=== PATIENT | female | born 1980 | race Caucasian/White ===

== ENCOUNTER 2017-05-21 22:26 | Emergency (ER) | payer OTHER ==
[~2017-05-21 22:26] MED LIST: OXYC-360 PO; PRENTAB72 PO; VITA200017 OR
[2017-05-21] MEDS ORDERED: PARO10TA2 PO (22:37)
[2017-05-21] MEDS ORDERED: TRAZ50TA12 PO (22:37)
[2017-05-21 22:38] VITALS: BP 129/77; PULSE 78; RESP 18; TEMP 98.7; O2SAT 99
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
[2017-05-21] MEDS ORDERED: HALOPERIDOL LACTATE 5 MG/ML AMP IM ONE (23:00)
[2017-05-21] MEDS ORDERED: DULO1CAP PO (23:00)
[2017-05-21] MEDS ORDERED: LORazepam 2 MG/ML VIAL IM ONE (23:15)
[2017-05-21 23:37] LABS: AUTOMATED NEUTROPHIL # 10.2 TH/MM3 (1.8-7.7); BASOPHIL # 0.1 TH/MM3 (0-0.2); BASOPHIL % 0.7 % (0.0-2.0); EOSINOPHIL # 0.1 TH/MM3 (0-0.4); EOSINOPHIL % 0.9 % (0.0-4.0); HEMATOCRIT 43.8 % (35.0-46.0); HEMO FLAGS DIFF FINAL; LYMPH % 28.1 % (9.0-44.0); LYMPHOCYTE # 4.4 TH/MM3 (1.0-4.8); MEAN CELL VOLUME 91.7 FL (80.0-100.0); MEAN CORPUSCULAR HEMOGLOBIN 30.5 PG (27.0-34.0); MEAN CORPUSCULAR HGB CONC 33.2 % (32.0-36.0); MONO % 5.9 % (0.0-8.0); NEUT % 64.4 % (16.0-70.0); PLATELET COUNT 263 TH/MM3 (150-450); RED BLOOD COUNT 4.77 MIL/MM3 (4.00-5.30); RED CELL DISTRIBUTION WIDTH 13.9 % (11.6-17.2); WHITE BLOOD COUNT 15.8 TH/MM3 (4.0-11.0)
[2017-05-21 23:54] LABS: ANION GAP 15 MEQ/L (5-15); AST (GOT) 19 U/L (15-37); BICARBONATE 19.6 MEQ/L (21.0-32.0); BLOOD UREA NITROGEN 8 MG/DL (7-18); CHLORIDE 107 MEQ/L (98-107); GLOMERULAR FILTRATION RATE 115 ML/MIN (>89); POTASSIUM 3.7 MEQ/L (3.5-5.1); SODIUM (NA) 142 MEQ/L (136-145)
[2017-05-21 23:55] LABS: ALT (GPT) 22 U/L (10-53)
[2017-05-21 23:57] LABS: ALKALINE PHOSPHATASE 72 U/L (45-117); TOTAL BILIRUBIN ADULT 0.4 MG/DL (0.2-1.0)
[2017-05-21 23:58] LABS: ALCOHOL 185 MG/DL (0-5)
[2017-05-22 02:30] VITALS: BP_SYST 121; BP_DIAS 6; BP_DIAS 67; PULSE 118; RESP 16
[2017-05-22 06:17] VITALS: BP 118/69; PULSE 99; RESP 18
[2017-05-22 11:25] VITALS: BP 130/73; PULSE 80; RESP 14; O2SAT 97
[2017-05-22 23:08] VITALS: BP 119/68; PULSE 92; RESP 18
== END 2017-05-23 ==
LOC: NEPD 22:26 → NEPJ 05-23
DX: Z02.89 Encounter for other administrative examinations (principal); F10.920 Alcohol use, unspecified with intoxication, uncomplicated
CPT/HCPCS: 80053; 80307; 85025; 96372; 99285; J1630; J2060; P9612